=== PATIENT | male | born 1955 | race Caucasian/White ===

== ENCOUNTER 2019-05-29 12:57 | Emergency (ER) | payer OTHER, SELFPAY ==
[2019-05-29 13:02] VITALS: BP 169/92; PULSE 92; RESP 16; TEMP 36.4; O2SAT 97
--- NOTE | 2019-05-29 13:15 | ED.GENADUL_ITS ---
Discharge Plan Disposition Patient Disposition: HOME Condition: Stable Discharge Details Chief Complaint: Laceration Clinical Impression: Abrasion of lip Primary Care Provider: None,None ED Provider: Aaron Goff Home Meds and New Rx's Prescriptions: No Action carvedilol 25 mg Tablet 25 mg PO DAILY RF: 0 warfarin 10 mg Tablet 10 mg PO DAILY RF: 0 lisinopril 20 mg Tablet 20 mg PO DAILY RF: 0 rosuvastatin 20 mg Capsule, Sprinkle 20 mg PO DAILY RF: 0 Discharge Instructions Instructions: Skin Adhesive Care (ED) Additional Instructions: if bleeding restarts and you can't stop it with holding pressure for 20 minutes return to the emergency department Medical Decision Making 64 yo male who is on afib for artificial heart valve per pt, who comes in after he knicked the right lower lip shaving this AM and has been bleeding since so came here. Denies lightheadedness, chest pain, sob or other symptoms to suggest anemia. Has slowly oozing area without obvious trauma, no lacs, from the right lower lip. Will try to cover with skin adhesive and reevaluate bleeding controlled with skin adhseive, will d/c and return precautions given Differential Diagnosis abrasion, laceration HPI General Mode of arrival: ambulatory . Date/Time Provider Initiated Documentation: 05/29/19 13:02 . Limitations to Documentation: no limitations . Information obtained by: patient . History of Present Illness 64 year old M presents to the emergency department with the chief complaint of lip bleeding, described as mild, Quality is described as aching, Patient reports no radia tion. Patient started experiencing this hour(s) (4) and it has been constant. No relieving factors improve symptom(s), No exacerbating factors reported . Patient did receive the following treatments prior to arrival, none Related Data Home Medications Medication Instructions Recorded Confirmed carvedilol 25 mg PO DAILY 05/29/19 05/29/19 lisinopril 20 mg PO DAILY 05/29/19 05/29/19 rosuvastatin 20 mg PO DAILY 05/29/19 05/29/19 warfarin 10 mg PO DAILY 05/29/19 05/29/19 Allergies Allergy/AdvReac Type Severity Reaction Status Date / Time No Known Allergies Allergy Unverified 05/29/19 13:04 General Stated Complaint: Laceration DIVYA: 4 Review of Systems Review of Systems All systems reviewed & are unremarkable except as noted in HPI and below Constitutional Denies chills, Denies fever(s) and Denies weakness Cardiovascular Denies chest pain and Denies dyspnea Respiratory Denies cough and Denies dyspnea Gastrointestinal Denies abdominal pain, Denies nausea and Denies vomiting Integumentary/Breasts Denies rash Neurologic Denies weakness Endocrine Denies heat intolerance PFSH Social History Smoking/Tobacco Use Status: Never Substance use type: does not use Exam Const General: no acute distress Orientation: alert HENMT Head: normal to inspection Ears: external ears normal General nose exam: external nose normal Mouth: moist mucous membranes Eyes General: appearance normal, both eyes and all related structures Neck Neck: normal visual inspection Resp Effort & Inspection: normal respiratory effort and able to speak in complete sentences Cardio Rate: regular rate Skin General skin exam: no rashes or lesions noted Neuro General: alert and oriented x3 Extrem General: normal to inspection Psych Mental Status: mental status grossly normal Course Vital Signs Temperature 36.4 C L 05/29/19 13:02 Pulse 92 H 05/29/19 13:02 Respiratory Rate 16 05/29/19 13:02 Blood Pressure 169/92 H 05/29/19 13:02 Pulse Oximetry 97 05/29/19 13:02 Temperature 36.4 C L 05/29/19 13:02 Temperature Source Skin 05/29/19 13:02 Pulse 92 H 05/29/19 13:02 Respiratory Rate 16 05/29/19 13:02 Respiratory Effort Non-Labored 05/29/19 13:02 Blood Pressure 169/92 H 05/29/19 13:02 Blood Pressure Position Sitting 05/29/19 13:02 Pulse Oximetry 97 05/29/19 13:02 Oxygen Delivery Method Room Air 05/29/19 13:02 Oxygen Flow Rate 0 05/29/19 13:02 Pain Level 0 05/29/19 13:02
== END 2019-05-29 13:40 | disposition home or self-care (01) ==
LOC: ER 13:43
PROVIDERS: Emergency Provider Emergency Medicine
DX: S00.511A Abrasion of lip, initial encounter (principal); W26.8XXA Contact with other sharp object(s), not elsewhere classified, initial encounter; Z79.01 Long term (current) use of anticoagulants; Z95.2 Presence of prosthetic heart valve
CPT/HCPCS: 12001

== ENCOUNTER 2019-06-02 07:04 | Outpatient (CLI) | payer OTHER, SELFPAY ==
[2019-06-02 07:56] LABS: INR 2.8 (0.9-1.1)
== END 2019-06-02 07:24 ==
DX: I48.0 Paroxysmal atrial fibrillation (principal); Z79.01 Long term (current) use of anticoagulants; Z95.2 Presence of prosthetic heart valve
CPT/HCPCS: 36415; 85610

== ENCOUNTER 2019-07-14 07:01 | Outpatient (CLI) | payer OTHER, SELFPAY ==
[2019-07-14 08:00] LABS: INR 1.5 (0.9-1.1); Prothrombin Time 14.8 sec (9.3-11.0)
== END 2019-07-14 07:21 ==
DX: I48.0 Paroxysmal atrial fibrillation (principal); Z95.2 Presence of prosthetic heart valve
CPT/HCPCS: 36415; 85610